=== PATIENT | male | born 1965 ===

== ENCOUNTER 2021-03-07 13:46 | Emergency (ER) | payer SELFPAY ==
[2021-03-07] MEDS ORDERED: ALBUTEROL 2.5 MG/3 ML NEBU IH ONE (14:02)
[2021-03-07] MEDS ORDERED: IPRATROPIUM 0.02% NEBU 2.5 ML IH ONE (14:03)
[2021-03-07] MEDS ORDERED: BENZONATATE 100 MG CAP PO ONE (14:03)
[2021-03-07] MEDS ORDERED: predniSONE 50 MG TAB PO ONE (14:03)
--- NOTE | 2021-03-07 14:08 | Emergency Department Report ---
HPI - General Chief Complaint: Upper Respiratory Infection Time Seen by Provider: 03/07/21 13:53 - HPI HPI: 55-year-old male presents to the emergency department with a 2-week history of a dry cough that occurs with coughing fits. He denies any fever, chest pain, lower extremity swelling, nausea, vomiting, back pain or diaphoresis. He has a past medical history of hypertension. He has not taken anything for his symptoms prior to presentation today. The patient works in construction and thinks that this may be what brought on his symptoms or at least makes it continue. No recent travel or sick contacts at home. The patient is vaccinated against COVID-19. He denies any tobacco or illicit drug use. ED Past Medical Hx - Past Medical History Previous Medical History?: Yes Hx Hypertension: Yes Additional medical history: Thyroid dz, cholesterol - Surgical History Past Surgical History?: No - Medications Home Medications: Home Medications Medication Instructions Recorded Confirmed Last Taken Type Albuterol Mdi (or & Nicu Only) 2 puff IH QID PRN #8.5 gram 03/07/21 Unknown Rx [ProAir HFA Inhaler] guaiFENesin/CODEINE [Robitussin AC] 5 ml PO Q6H PRN #100 ml 03/07/21 Unknown Rx predniSONE [Deltasone] 20 mg PO QDAY #5 tab 03/07/21 Unknown Rx ED Review of Systems ROS: Stated complaint: COUGH Other details as noted in HPI Comment: All other systems reviewed and negative Constitutional: denies: chills, fever Eyes: denies: eye pain, vision change ENT: denies: ear pain, throat pain Respiratory: cough. denies: shortness of breath Cardiovascular: denies: chest pain, palpitations, edema Gastrointestinal: denies: abdominal pain, vomiting Genitourinary: denies: dysuria, discharge Musculoskeletal: denies: back pain, arthralgia Skin: denies: rash, lesions Neurological: denies: headache, weakness Physical Exam - Physical Exam Physical Exam: GENERAL: The patient is well-developed well-nourished. HENT: Normocephalic. Atraumatic. Patient has moist mucous membranes. EYES: Extraocular motions are intact. NECK: Supple. Trachea is midline. CHEST/LUNGS: Mild to moderate expiratory wheezing. There is a dry bronchospastic cough heard with coughing fits. There is no respiratory distress noted. HEART/CARDIOVASCULAR: Regular. There is no tachycardia. There is no murmur. ABDOMEN: Abdomen is soft, nontender. Patient has normal bowel sounds. SKIN: Skin is warm and dry. NEURO: The patient is awake, alert, and oriented. The patient is cooperative. The patient has no focal neurologic deficits. Normal speech. MUSCULOSKELETAL: There is no tenderness or deformity. There is no limitation range of motion. ED Medical Decision Making - Radiology Data Radiology results: image reviewed interpreted by me: Chest x-ray does not show any acute process. There are no pleural effusions, obvious pneumonia and there is no pneumothorax. No widened mediastinum. - Medical Decision Making This patient presents with a 2-week history of a cough. During his initial examination I can hear this dry bronchospastic cough that occurs with coughing fits. Patient also has moderate expiratory wheezing to auscultation. He does not appear in any respiratory or acute distress. Chest x-ray does not show any pneumonia, pleural effusions, pneumothorax, widened mediastinum, or any other acute process. Patient was given a dose of steroids, antitussive medication, and a breathing treatment. Upon reevaluation he is improved. Vital signs reassuring including being afebrile and no hypoxia. He will be discharged home with an albuterol inhaler, course of steroids, Robitussin-AC for cough. He says that he has good outpatient follow-up with primary care. Critical Care Time: No Critical care attestation.: If time is entered above; I have spent that time in minutes in the direct care of this critically ill patient, excluding procedure time. ED Disposition Clinical Impression: Bronchitis, Bronchospasm Disposition: 01 HOME / SELF CARE / HOMELESS Is pt being admited?: No Condition: Stable Instructions: Bronchospasm, Adult, Acute Bronchitis, Adult, Chronic Bronchitis (ED) Additional Instructions: Please follow-up with your primary care physician in the next few days. You have been prescribed a medication that is sedating and therefore should not be taken prior to driving, working, and responsible for children and in no way should be mixed with alcohol of any quantity. Return to the emergency department with any worsening of your symptoms, new or concerning symptoms not addressed during this current emergency department visit, or with any acute distress. Prescriptions: predniSONE [Deltasone] 20 mg PO QDAY #5 tab Albuterol Mdi (or & Nicu Only) [ProAir HFA Inhaler] 2 puff IH QID PRN #8.5 gram PRN Reason: Shortness Of Breath guaiFENesin/CODEINE [Robitussin AC] 5 ml PO Q6H PRN #100 ml PRN Reason: Cough Referrals: Primary Care Provider, Your [Other] - 2-3 Days Forms: Work/School Release Form(ED) Time of Disposition: 15:26
--- NOTE | 2021-03-07 15:21 | XRay Report ---
CHEST 2 VIEWS INDICATION: cough. COMPARISON: None FINDINGS: Support devices: None. Heart: Within normal limits. Lungs/pleura: No acute air space or interstitial disease. No pneumothorax. Additional findings: None. IMPRESSION: No acute findings. Signer Name: Morro Dorsey Jr, MD Signed: 03/07/2021 3:17 PM Workstation Name: [id number]
[2021-03-07 15:54] VITALS: BP 154/80
== END 2021-03-07 16:15 | disposition home or self-care (01) ==
LOC: ED 13:46
DX: J40 Bronchitis, not specified as acute or chronic (principal); I10 Essential (primary) hypertension
CPT/HCPCS: 71046; 99283; J7512